=== PATIENT | female | born 1950 | race Caucasian/White ===

== ENCOUNTER → 2017-06-27 | Outpatient (CLI) | payer BC, OTHER | LOC: M WUC 14:26 | DX: R13.10 Dysphagia, unspecified (principal); R05 Cough ==

== ENCOUNTER → 2017-09-13 | Outpatient (CLI) | payer MEDICARE, BC, OTHER | LOC: M ST 11:09 | DX: R13.10 Dysphagia, unspecified (principal) | CPT/HCPCS: 74230 ==